=== PATIENT | female | born 1940 | race Caucasian/White ===

== ENCOUNTER → 2016-11-17 | Outpatient (CLI) | payer MEDICARE, OTHER ==
[~2016-11-17] MED LIST: BENI40TA5 PO; FISH1200 PO; OLME1TAB13 PO; OMEG100046; OXYC-392 PO; VITA100018 PO
[2016-11-17 14:08] LABS: AUTOMATED NEUTROPHIL # 3.9 TH/MM3 (1.8-7.7); BASOPHIL # 0.1 TH/MM3 (0-0.2); BASOPHIL % 0.9 % (0.0-2.0); EOSINOPHIL # 0.2 TH/MM3 (0-0.4); EOSINOPHIL % 2.3 % (0.0-4.0); HEMATOCRIT 44.7 % (35.0-46.0); HEMO FLAGS DIFF FINAL; LYMPHOCYTE # 2.8 TH/MM3 (1.0-4.8); MEAN CELL VOLUME 91.2 FL (80.0-100.0); MEAN CORPUSCULAR HEMOGLOBIN 30.8 PG (27.0-34.0); MEAN CORPUSCULAR HGB CONC 33.8 % (32.0-36.0); MONO % 7.7 % (0.0-8.0); NEUT % 52.1 % (16.0-70.0); PLATELET COUNT 175 TH/MM3 (150-450); RED CELL DISTRIBUTION WIDTH 13.5 % (11.6-17.2); WHITE BLOOD COUNT 7.5 TH/MM3 (4.0-11.0)
[2016-11-17 14:12] LABS: BLOOD, URINE NEG (NEG); GLUCOSE,URINE NEG (NEG); KETONE, URINE NEG (NEG); NITRITE,URINE NEG (NEG); URINE COLOR COLORLESS (YELLW/STRAW)
[2016-11-17 14:13] LABS: COMMENT (UR) CULT NOT INDICATED; CULTURE IF INDICATED CULT NOT INDICATED
--- NOTE | 2016-11-19 13:05 | EKG ---
Date Performed: 11/17/2016 Time Performed: 13:23:04 PTAGE: 76 years EKG: Sinus rhythm NORMAL ECG NO PREVIOUS TRACING DOCTOR: Clint Lambert Interpretating Date/Time 11/19/2016 12:56:23
== END ==
LOC: CPRE 13:07
PROVIDERS: ATTEND Obstetrics & Gynecology
DX: Z01.810 Encounter for preprocedural cardiovascular examination (principal); Z01.812 Encounter for preprocedural laboratory examination; N95.0 Postmenopausal bleeding; N85.00 Endometrial hyperplasia, unspecified
CPT/HCPCS: 36415; 81001; 85025; 93005

== ENCOUNTER → 2016-11-19 | Day surgery (SDC) | payer MEDICARE, OTHER ==
--- NOTE | 2016-11-18 12:29 | MH ---
cc: DARRION HUITRON DATE OF ADMISSION: 11/19/2016 ADMITTING DIAGNOSIS Postmenopausal bleeding. HISTORY OF PRESENT ILLNESS The patient is a 76-year-old white female para 2-0-1-2, had developed painless bleeding per vagina on the evening of 10/20/2016 and came in for evaluation on 11/04/2016. Pelvic ultrasound showed the uterus which measured 6.2 cm. Endometrium 6 mm. She is now admitted for evaluation. PAST MEDICAL HISTORY PREVIOUS SURGERY None. MEDICATIONS She will bring in list. ALLERGIES KEFLEX which causes a rash. SERIOUS MEDICAL ILLNESSES History of hypertension. TRANSFUSIONS None. OBSTETRICAL HISTORY Two vaginal deliveries. SOCIAL HISTORY Retired, . Alcohol occasional. Tobacco none. Drugs none. FAMILY HISTORY Noncontributory. PHYSICAL EXAMINATION GENERAL: This is a well-nourished, well-developed white female. VITAL SIGNS: Stable. HEENT EXAM: Exam is normal. CHEST: Clear. HEART: Regular rate. BREASTS: Symmetrical. ABDOMEN: Benign. PELVIC EXAM: Vagina is atrophic with cystocele, rectocele. The uterus feels normal in size and shape. Adnexa non-palpable. ASSESSMENT As above. PLAN She is now admitted for a hysteroscopy and D&C. While in the office I have explained the procedures, the risks, benefits and complications and possible need for additional surgery depending on the findings. The patient would like to proceed. MD BART Morales/TALISHA /11:58 AM /12:19 PM
[~2016-11-19] VITALS: Ht 157.5 cm; Wt 76.8 kg
[~2016-11-19] MED LIST changes: +ACETAMINOPHEN 1000 MG/100 ML VIAL IV SCH; +CHLORHEXIDINE GLUCONATE 2 % 1 PACK (2 CLOTHS) TOPICAL PRN; +DO NOT ADM ANY ANTICOAGULANT DRUGS PRN; +INSULIN HUMAN REGULAR 1,000 UNITS/10 ML VIAL SQ PRN; +LACTATED RINGER'S 1000 ML IV PRN; +LIDOCAINE HCL 1% PF 5 ML AMPULE OTHER ONE; +METOPROLOL TARTRATE 25 MG TAB PO PRN; +MIDAZOLAM HCL 2 MG/2 ML VIAL IV ONE; +POVIDONE IODINE 5% (ANTISEPSIS KIT) 4 APPLICATIONS EACH NARE PRN; +PROPOFOL 200 MG/20 ML AMP IV ONE; +SODIUM CHLORID 0.9% 500 ML IV PRN
[2016-11-19 09:35] VITALS: BP 176/86; PULSE 73; RESP 16; O2SAT 96
--- NOTE | 2016-11-19 11:09 | MP ---
cc: DARRION HUITRON DATE OF SURGERY 11/19/2016 PREOPERATIVE DIAGNOSIS Postmenopausal bleeding POSTOPERATIVE DIAGNOSIS Postmenopausal bleeding, pathology pending PROCEDURE Hysteroscopy, D&C ANESTHESIA General LMA ESTIMATED BLOOD LOSS Less than 10 cc FLUIDS About 300 cc of crystalloid. OBJECTIVE FINDINGS Following induction of adequate general LMA anesthesia, the patient was prepped and draped supine on the operating table in the dorsal lithotomy position in the usual sterile fashion with the bladder being drained via catheterization. Exam under examination revealed a second-degree cystocele with uterine prolapse and rectocele. Uterus palpated normal size and shape anterior with no adnexal masses. A heavy weighted speculum was placed in posterior fornix of the vagina. The anterior lip of the cervix grasped with a single tooth tenaculum. The cervix and uterus sounded to 7 cm with a soft dilator and dilated with a #18 Hanks dilator. The scope was passed revealing a normal endocervix and largely atrophic endometrium. The scope was now withdrawn. Endocervical curettings obtained with a small serrated curet, endometrium a small sharp curette and polyp forceps passed to sweet pickled fruit maker loose tissue and debris. The cervical tenaculum sites were now sutured with 3-0 chromic for hemostasis. All instruments removed. All counts were correct. The patients legs were taken out of the stirrups and she was awakened and taken to the recovery room in good condition. MD BART Morales/JULY /7:58 AM /11:03 AM
== END | disposition home or self-care (01) ==
LOC: HSDC 05:27
PROVIDERS: ATTEND Obstetrics & Gynecology
DX: N95.0 Postmenopausal bleeding (principal); C54.1 Malignant neoplasm of endometrium
CPT/HCPCS: 00952; 58558; 88305; J0131; J2250; J7120

== ENCOUNTER → 2016-12-09 | Outpatient (CLI) | payer MEDICARE, OTHER ==
[~2016-12-09] MED LIST changes: -ACETAMINOPHEN 1000 MG/100 ML VIAL IV SCH; -CHLORHEXIDINE GLUCONATE 2 % 1 PACK (2 CLOTHS) TOPICAL PRN; -DO NOT ADM ANY ANTICOAGULANT DRUGS PRN; -INSULIN HUMAN REGULAR 1,000 UNITS/10 ML VIAL SQ PRN; -LACTATED RINGER'S 1000 ML IV PRN; -LIDOCAINE HCL 1% PF 5 ML AMPULE OTHER ONE; -METOPROLOL TARTRATE 25 MG TAB PO PRN; -MIDAZOLAM HCL 2 MG/2 ML VIAL IV ONE; -POVIDONE IODINE 5% (ANTISEPSIS KIT) 4 APPLICATIONS EACH NARE PRN; -PROPOFOL 200 MG/20 ML AMP IV ONE; -SODIUM CHLORID 0.9% 500 ML IV PRN
[2016-12-09 14:18] LABS: APTT (PATIENT) 25.6 SEC (24.3-30.1)
[2016-12-09 14:26] LABS: AUTOMATED NEUTROPHIL # 5.8 TH/MM3 (1.8-7.7); BASOPHIL # 0.1 TH/MM3 (0-0.2); BASOPHIL % 0.7 % (0.0-2.0); EOSINOPHIL # 0.2 TH/MM3 (0-0.4); EOSINOPHIL % 2.2 % (0.0-4.0); HEMATOCRIT 43.2 % (35.0-46.0); HEMO FLAGS DIFF FINAL; LYMPH % 26.5 % (9.0-44.0); LYMPHOCYTE # 2.4 TH/MM3 (1.0-4.8); MEAN CELL VOLUME 91.9 FL (80.0-100.0); MEAN CORPUSCULAR HEMOGLOBIN 31.6 PG (27.0-34.0); MEAN CORPUSCULAR HGB CONC 34.3 % (32.0-36.0); MONO % 7.6 % (0.0-8.0); PLATELET COUNT 175 TH/MM3 (150-450); RED BLOOD COUNT 4.69 MIL/MM3 (4.00-5.30); RED CELL DISTRIBUTION WIDTH 13.7 % (11.6-17.2); WHITE BLOOD COUNT 9.2 TH/MM3 (4.0-11.0)
[2016-12-09 14:39] LABS: ALT (GPT) 24 U/L (10-53); ANION GAP 6 MEQ/L (5-15); AST (GOT) 18 U/L (15-37); BICARBONATE 24.9 MEQ/L (21.0-32.0); BLOOD UREA NITROGEN 31 MG/DL (7-18); CHLORIDE 108 MEQ/L (98-107); GLOMERULAR FILTRATION RATE 39 ML/MIN (>89); GLUCOSE,FASTING 85 MG/DL (74-99); POTASSIUM 4.5 MEQ/L (3.5-5.1); SODIUM (NA) 139 MEQ/L (136-145)
[2016-12-09 14:42] LABS: ALKALINE PHOSPHATASE 64 U/L (45-117); TOTAL BILIRUBIN ADULT 0.4 MG/DL (0.2-1.0)
--- NOTE | 2016-12-09 14:54 | RADRPT ---
EXAM DATE/TIME: 12/09/2016 14:32 [facility] COMPARISON: No previous studies available for comparison. INDICATIONS : Evaluate for pneumonia, pneumothorax or communicable disease. Pre op for hysterectomy 12-17-16 MEDICAL HISTORY : None. SURGICAL HISTORY : None. ENCOUNTER: Initial ACUITY: 1 day PAIN SCORE: 0/10 LOCATION: Bilateral chest FINDINGS: PA and lateral views of the chest demonstrate the lungs to be symmetrically aerated without evidence of mass, infiltrate or effusion. The cardiomediastinal contours are unremarkable. Degenerative arellano ges in the upper thoracic spine. CONCLUSION: No acute disease. Bridger Luna MD FACR on December 09, 2016 at 14:52 Board Certified Radiologist. This report was verified electronically.
== END ==
LOC: CPRE 13:47
PROVIDERS: ATTEND Obstetrics & Gynecology Gynecologic Oncology
DX: Z01.811 Encounter for preprocedural respiratory examination (principal); Z01.812 Encounter for preprocedural laboratory examination; C54.1 Malignant neoplasm of endometrium
CPT/HCPCS: 36415; 71020; 80053; 85025; 85610; 85730

== ENCOUNTER 2016-12-17 05:16 | Observation (INO) | payer MEDICARE, OTHER ==
[~2016-12-17] VITALS: Ht 157.5 cm; Wt 75.5 kg
[~2016-12-17 05:16] MED LIST changes: -FISH1200 PO; -OLME1TAB13 PO; -OXYC-392 PO
[2016-12-17] MEDS ORDERED: POVIDONE IODINE 5% (ANTISEPSIS KIT) 4 APPLICATIONS EACH NARE PRN (05:45)
[2016-12-17] MEDS ORDERED: SODIUM CHLORIDE FLUSH PRN IV FLUSH (05:45)
[2016-12-17] MEDS ORDERED: INSULIN HUMAN REGULAR 1,000 UNITS/10 ML VIAL SQ PRN (05:45)
[2016-12-17] MEDS ORDERED: METOPROLOL TARTRATE 25 MG TAB PO PRN (05:45)
[2016-12-17] MEDS ORDERED: LACTATED RINGER'S 1000 ML IV PRN (05:45)
[2016-12-17] MEDS ORDERED: CHLORHEXIDINE GLUCONATE 2 % 1 PACK (2 CLOTHS) TOPICAL PRN (05:45)
[2016-12-17] MEDS ORDERED: SODIUM CHLORID 0.9% 500 ML IV PRN (05:45)
[2016-12-17] MEDS ORDERED: HEPARIN SODIUM - SQ 10,000 UNITS/ML VIAL SQ SCH (05:45)
[2016-12-17] MEDS ORDERED: LEVOFLOXACIN 500 MG PREMIX INJ 100 ML IV ONE (06:28)
[2016-12-17] MEDS ORDERED: metroNIDAZOLE 500 MG INJ 100 ML IV ONE (06:28)
[2016-12-17] MEDS ORDERED: LIDOCAINE 2%/EPINEPHrine PF 1:200,000 20ML SDV ONE (06:49)
[2016-12-17] MEDS ORDERED: SUGAMMADEX SODIUM 200 MG/2 ML VIAL IV PUSH ONE ×2 (06:55)
[2016-12-17] MEDS ORDERED: FAMOTIDINE 20 MG/2 ML VIAL ONE (06:55)
[2016-12-17] MEDS ORDERED: ACETAMINOPHEN 1000 MG/100 ML 100 ML IV ONE (06:56)
[2016-12-17] MEDS ORDERED: DEXAMETHASONE SOD PHOS 4 MG/ML VIAL ONE (06:56)
[2016-12-17] MEDS ORDERED: METRONIDAZOLE 500 MG/100 ML ISONTONIC SOLN IV SCH (07:00)
[2016-12-17] MEDS ORDERED: LEVOFLOXACIN 500 MG PREMIX INJ 100 ML IV SCH (07:00)
[2016-12-17] MEDS ORDERED: HYDROmorphone HCL PF 2 MG/ML VIAL ONE (07:56)
[2016-12-17] MEDS ORDERED: SODIUM CHLORIDE FLUSH BID IV FLUSH SCH (09:00)
[2016-12-17] MEDS ORDERED: HYDROmorphone HCL PF 1 MG/ML VIAL IVP PRN (11:15)
[2016-12-17] MEDS ORDERED: SODIUM CHLORIDE 0.9% FLUSH 10 ML FLUSH IV FLUSH PRN (11:15)
[2016-12-17] MEDS ORDERED: diphenhydrAMINE HCL 25 MG CAP PO PRN (11:15)
[2016-12-17] MEDS ORDERED: ONDANSETRON HCL 4 MG/2 ML VIAL IVP PRN (11:15)
[2016-12-17] MEDS ORDERED: LORazepam 0.5 MG TAB PO PRN (11:15)
[2016-12-17] MEDS ORDERED: DO NOT ADM ANY ANTICOAGULANT DRUGS PRN (11:20)
[2016-12-17] MEDS ORDERED: *ONDANSETRON 4 MG VIAL PERIprocedural Use ONLY ONE (11:53)
[2016-12-17] MEDS ORDERED: *PROMETHAZINE 25 MG/ML VIAL PERIprocedural use ONLY ONE (12:01)
[2016-12-17] MEDS: DEXT 5%-NACL 0.45% 1000 ML INJ 1,000 ML IV SCH ×2 (12:15→22:55)
[2016-12-17] MEDS ORDERED: ONDANSETRON HCL 4 MG/2 ML VIAL IV PUSH ONE (14:03)
[2016-12-17] MEDS ORDERED: PHENYLEPH/NS 1000 MCG/10 ML SYR IV ONE (14:03)
[2016-12-17] MEDS ORDERED: MIDAZOLAM HCL 2 MG/2 ML VIAL IV ONE (14:03)
[2016-12-17] MEDS ORDERED: PROPOFOL 200 MG/20 ML AMP IV ONE (14:03)
[2016-12-17] MEDS ORDERED: ePHEDrine/NS 25 MG/5 ML SYR IV ONE (14:03)
[2016-12-17] MEDS ORDERED: SODIUM CHLORID 0.9% 500 ML INJ 1,000 ML IV ONE (14:03)
[2016-12-17] MEDS ORDERED: DEXAMETHASONE SOD PHOS 4 MG/ML VIAL IV ONE (14:03)
[2016-12-17] MEDS ORDERED: ROCURONIUM INJ 50 MG/5 ML SYRINGE IV PUSH ONE (14:03)
[2016-12-17] MEDS ORDERED: LIDOCAINE HCL 1% PF 5 ML AMPULE OTHER ONE (14:03)
[2016-12-17] MEDS ORDERED: KETOROLAC TROMETHAMINE 60 MG/2 ML (IM) VIAL IM ONE (14:03)
[2016-12-17] MEDS ORDERED: LACTATED RINGER'S 1000 ML INJ 2,000 ML IV ONE (14:03)
[2016-12-17] MEDS: ACETAMINOPHEN 1000 MG/100 ML 100 ML IV SCH ×2 (14:48→18:46)
--- NOTE | 2016-12-17 15:10 | PD.ONC.PN ---
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 pain controlled no complaints Objective Data Date Time Temp Pulse Resp B/P (MAP) Pulse Ox O2 Delivery O2 Flow Rate FiO2 12/17/16 14:00 75 16 156/74 (101) 96 Nasal Cannula 2 12/17/16 12:45 97.9 75 16 146/66 (92) 97 Nasal Cannula 2 12/17/16 12:30 71 12 164/79 (107) 93 Nasal Cannula 2 12/17/16 12:15 72 10 166/79 (108) 93 Nasal Cannula 2 12/17/16 12:00 77 12 170/86 (114) 94 Nasal Cannula 2 12/17/16 11:45 85 12 176/84 (114) 92 Nasal Cannula 2 12/17/16 11:30 77 10 158/94 (115) 95 Simple Mask 6 12/17/16 11:22 97.6 80 12 149/93 (111) 96 Simple Mask 6 12/17/16 12/17/16 12/17/16 07:00 15:00 23:00 Intake Total 2300 ml Output Total 900 ml Balance 1400 ml Administered Medications Medications (Trade) Dose Ordered Sig/Yadi Route PRN Reason Start Time Stop Time Status Last Admin Dose Admin Dextrose/Sodium Chloride 1,000 ml @ 75 mls/hr [id number] IV 12/17/16 11:04 12/17/16 12:15 Acetaminophen 100 ml @ 400 mls/hr Q6H IV 12/17/16 13:00 12/18/16 12:59 12/17/16 14:48 Objective Remarks GENERAL: Well-nourished, well-developed patient. SKIN: Warm and dry. HEAD: Normocephalic. EYES: No scleral icterus. No injection or drainage. CARDIOVASCULAR: Regular rate and rhythm without murmurs. RESPIRATORY: Breath sounds equal bilaterally. No accessory muscle use. GASTROINTESTINAL: Abdomen soft, SS are C/D/I EXTREMITIES: teds and scds MUSCULOSKELETAL: Adequate muscle tone. NEUROLOGICAL: No obvious focal deficit. Awake, alert, and oriented x3. PSYCHIATRIC: Appropriate mood and affect; insight and judgment normal. Assessment/Plan Problem List: (1) Post-operative state ICD Codes: Z98.890 - Other specified postprocedural states Status: Acute Plan: s/p RA eliezer hyst with BSO for endometrial cancer post op orders in chart awaiting bed on 7[facility] ADAT d/c hugh in morning anticipate d/c in next 24 hours Attending Statement discussed with Dr. Zafar Ramsey,Teresa SUTTON Dec 17, 2016 15:10
[2016-12-17 16:30] VITALS: BP 177/82; PULSE 72; RESP 20; TEMP 96.4; O2SAT 94
[2016-12-17] MEDS: SODIUM CHLORIDE 0.9% FLUSH 10 ML FLUSH IV FLUSH SCH (19:45)
[2016-12-17 20:00] VITALS: BP 145/70; PULSE 80; RESP 17; TEMP 97.1; O2SAT 100
[2016-12-18] VITALS: BP 155/81; PULSE 71; RESP 18; TEMP 97.7; O2SAT 96
[2016-12-18] MEDS: ACETAMINOPHEN 1000 MG/100 ML 100 ML IV SCH ×2 (01:12→06:22)
[2016-12-18 05:19] VITALS: BP 150/72; PULSE 68; RESP 18; TEMP 97.6; O2SAT 96
[2016-12-18] MEDS ORDERED: OXYC-392 PO (06:32)
[2016-12-18 06:57] LABS: BASOPHIL % 0.4 % (0.0-2.0); HEMATOCRIT 42.5 % (35.0-46.0); HEMO FLAGS DIFF FINAL; LYMPH % 12.9 % (9.0-44.0); LYMPHOCYTE # 1.6 TH/MM3 (1.0-4.8); MEAN CELL VOLUME 92.2 FL (80.0-100.0); MEAN CORPUSCULAR HEMOGLOBIN 31.5 PG (27.0-34.0); MEAN CORPUSCULAR HGB CONC 34.2 % (32.0-36.0); MONO % 7.3 % (0.0-8.0); NEUT % 79.4 % (16.0-70.0); PLATELET COUNT 146 TH/MM3 (150-450); RED BLOOD COUNT 4.61 MIL/MM3 (4.00-5.30); RED CELL DISTRIBUTION WIDTH 13.3 % (11.6-17.2); WHITE BLOOD COUNT 12.5 TH/MM3 (4.0-11.0)
[2016-12-18 07:34] LABS: BICARBONATE 22.8 MEQ/L (21.0-32.0); POTASSIUM 4.5 MEQ/L (3.5-5.1)
[2016-12-18 08:00] VITALS: BP 138/71; PULSE 67; RESP 14; TEMP 97.1; O2SAT 97
--- NOTE | 2016-12-18 08:06 | MP ---
cc: DARRION HUITRON JAMES R. D.O. MOLPUS, KELLY L. MD PURANDARE, VINAYAK V. M.D. DATE OF SURGERY 12/17/2016 PREOPERATIVE DIAGNOSIS Grade 2 endometrial cancer. POSTOPERATIVE DIAGNOSIS 1. Grade 2 endometrial cancer. 2. Extensive pelvic adhesions. 3. Extensive colonic diverticulum. PROCEDURE Robotic-assisted laparoscopic hysterectomy, bilateral salpingo-oophorectomy, bilateral pelvic lymph node excisional biopsies, extensive lysis of adhesions. SURGEON Taryn Stephen MD TEAM PSYCHOLOGIST [place] registered nurse first assistant ANESTHESIA General endotracheal anesthesia ESTIMATED BLOOD LOSS 200 cc IV FLUIDS 2300 cc URINE OUTPUT 400 cc HISTORY 76-year-old female with postmenopausal bleeding. Biopsy showed a grade 2 endometrial cancer. She was counseled regarding these findings and is ready to move forward with surgical management. She is seen again in the preop holding area where findings and issues are again discussed and reviewed. She remains apprehensive about full lymphadenectomy and the possibility of lymphedema. As per our prior discussion, we will use judgment based on findings at the time of frozen section and agreed that if findings are low or at intermediate risk, we would forego a full lymphadenectomy, but if there are any findings that are suspicious or prominent lymph nodes, we would selectively removed those to help increase diagnostic accuracy, but minimize morbidity and she is in favor of that approach and agrees to move forward with surgery. FINDINGS The uterus is retroverted sounds to 6 cm and is grossly normal. The ovaries are grossly normal. The tubes are status post tubal ligation. In the peritoneal cavity, the pelvis is densely adherent to colon and is adherent over the left adnexa. The left adnexa cannot be visualized initially as they are retroperitonealize plastered against the left pelvic sidewall and in the cul-de-sac and the cul-de-sac is obliterated with extensive adhesions. There are numerous diverticulum in the colon suggesting that this process is all resulting from prior episodes of diverticulitis. The right tube and ovary have minimal adhesions. In the abdomen, the anatomy appears relatively normal. The liver diaphragm edges are smooth. Omentum grossly appears normal. Large, small bowel and adjacent mesentery are without peritoneal implants. The uterus once removed on preliminary pathology showed a plaque-like tumor on the endometrium. On gross inspection, it was not obviously invasive, but on microscopic, there was a focal area of invasion that invaded to approximately 7/15 mm myometrium. There was a prominent lymph node or group of lymph nodes in the left obturator space. There was a slightly prominent lymph node in the right external iliac area and another one in the obturator space. the remainder of the lymph nodes were undetectable and not appreciably enlarged. There were no detectable or prominent para-aortic lymph nodes. MODIFIER/STATEMENT OF COMPLEXITY The complexity of this case was increased significantly due to extensive pelvic adhesions as described and estimated additional 45 minutes were required lysing adhesions to restore normal anatomy to help accomplish surgical objectives and modifier should be applied accordingly. PROCEDURE The patient taken to the operating room, placed in the dorsal lithotomy position after general endotracheal anesthesia was administered. A time-out was undertaken. She was identified by sight recognition, hospital ID [email or web address] and the proposed procedure was reviewed and confirmed. She was carefully positioned in padded Jeffy stirrups. Her arms padded and secured to her sides. She was further secured to the operating table with egg crate padding and tape in a cross chest over the shoulder fashion. All sites noted to be properly aligned with no malalignments or pressure points. She was prepped and draped in a sterile fashion, placed in lithotomy position. The cervix was grasped, large rectocele was noted. A posterior retractor was used to help visualize the cervix. The uterine cavity sounded. The cervix was dilated and a standard V-Care manipulator was inserted and secured in the usual fashion. Vyas catheter placed in the bladder. She was returned to low lithotomy position. A change of sterile gloves was undertaken. We completed draping in anticipation of laparoscopy, confirmed that an orogastric tube was in the stomach on suction. With manual elevation of the abdominal wall and direct laparoscopic visualization, a 5 mm cannula introduced in the left upper quadrant and an atraumatic entry was confirmed. Carbon dioxide gas was insufflated. A 12 mm cannula placed in the midline above the umbilicus. 8 mm cannula was placed in the right upper quadrant, left lateral quadrant and the original 5 exchanged for a 8 mm cannula. She is placed in steep Trendelenburg position. Peritoneal washings were obtained for cytology. The anatomy was reviewed with findings as described above and in Trendelenburg position, the small bowel was folded back on its mesenteric root and three Ray-Jose Alejandro sponges were placed around the root of the small bowel mesentery. The robotic system was brought into the operative field, attached in the usual fashion. Monopolar scissors, fenestrated bipolar forceps and Prograsp manipulators were placed in arms #1, 2 and 3 respectively and I took my place at the surgeon's console. The right round ligament was isolated, cauterized and transected. The anterior and posterior leafs of the broad ligament were opened. The right ureter was identified. The right infundibulopelvic ligament was isolated. The intervening peritoneum was opened. The infundibulopelvic ligament was isolated to the level of the pelvic brim where it was cauterized and transected. Posterior peritoneum opened along the right side of the uterus and cervix and the right vesicouterine peritoneum was dissected off the lower uterine segment and cervix and the right uterine vessels were skeletonized. They were isolated, cauterized and transected as were the cardinal, paracervical, and uterosacral ligaments. Attention was directed to the left side where extensive adhesions were noted as described above. Sharp dissection was used to mobilize the colon from its dense attachments overlying the adnexa and to free the colon and colonic mesentery from obliteration of the posterior cul-de-sac and to dissect the colon off the left posterior wall of the uterus and cervix. Further sharp dissection was used to free the adhesions from the tube and ovary and remove them from the retroperitonealized position to allow them to be mobilized away from the colon. Retroperitoneal dissection was carried out further now lateral to the gonadal vessels as the left round ligament was isolated, cauterized and transected. Dissection allowed further mobilization of the colon medially and allowed identification of the left ureter such that the infundibulopelvic ligament could be isolated and the intervening peritoneum was opened. The infundibulopelvic ligament was isolated to the level of the pelvic brim where it was isolated and cauterized and transected. Now moving proximally toward the uterus, additional sharp dissection was used to help further mobilize the tube and ovary, isolate them as the colon was further mobilized and dropped posteriorly to help isolate the left tube and ovary. The canal elevated attached now only by the utero-ovarian ligament. The remainder of the posterior peritoneum was opened and the left vesicouterine peritoneum was dissected off the lower uterine segment. The left uterine vessels were isolated, skeletonized, cauterized and transected as were the cardinal, paracervical and uterosacral ligaments. Colpotomy was performed and the specimen was withdrawn transvaginally which included uterus, cervix, tubes and ovaries and a Pneumooccluder balloon was placed in the vagina to maintain pneumoperitoneum. Instruments one and three were exchanged for needle drivers as 0 a Vicryl suture was introduced. The vaginal cuff was closed starting at the left corner full-thickness closure including the posterior peritoneum, edge of the uterosacral ligament, tied via instrument tie. The running continuous closure was held on countertraction as full-thickness closure was carried across the vaginal apex and contralateral corner where it was tied via instrument tie and the needle was cut and removed. The integrity of the bladder was checked with visual inspection. There was a good margin between the vaginal cuff suture line and the edge of the bladder. Good peristalsis of ureters bilaterally. Frozen section came back with intermediate risk factors including moderate grade tumor with depth of invasion approximately 50%. As per our preoperative discussion, the pelvic lymph node basins were opened as the paravesical obturator spaces and pararectal spaces were developed and inspection was carried out along the common iliac artery, aorta, and vena cava. The findings were as described above with a single prominent lymph node or group of lymph nodes in the left the obturator space perhaps just over 1-cm and similarly on the right side along the external iliac and in the obturator space slightly prominent lymph nodes were detected. The remainder of the nodes were undetectable, not appreciably enlarged and as per our discussion and agreement, these lymph nodes were removed. Dissection was initiated on the right side where the first the right external iliac lymph node was removed with Bipolar cautery and sharp dissection. It was placed on a Ray-Jose Alejandro sponge in the right pericolic gutter for later retrieval. The obturator space was further developed an the prominent lymph node in the obturator space was isolated and removed with bipolar cautery and sharp dissection and similarly placed in the right pelvis for later retrieval. Bleeders rendered hemostatic with bipolar cautery. Attention was directed toward the left side, left obturator space was developed and the lymph node in this area that was prominent was removed with bipolar cautery and sharp dissection. Small bleeders rendered hemostatic with bipolar cautery and this lymph node was placed in the right pelvis for later retrieval. Visual and palpable inspection of the lymph node basins revealed no other abnormality. It was felt that all reasonable surgical objectives in this patient had been completed. The pelvis was thoroughly irrigated. Small bleeders rendered hemostatic with bipolar cautery. Surgicel was placed overlying the colon and mesentery were the extensive lysis of adhesions had taken place as there was some generalized adhesive surfaces oozing minimally and then a small piece of Surgicel was placed on each of the pelvic lymph node basins. The robotic instruments were removed. The robotic system was disengaged from the operative field. I reentered the bedside under sterile condition. Using a 12-cm EndoCatch bag, the single Ray-Jose Alejandro sponge containing lymph nodes was placed in the bag and withdrawn through the 12-mm cannula and after removal, the lymph node tissue was removed from the Ray-Jose Alejandro sponge, isolated and sent for permanent histopathologic analysis. The remaining two Ray-Jose Alejandro sponges were each grasped and removed, inspected and noted to be removed in their entirety. There were no remaining foreign objects in the peritoneal cavity. Preliminary counts were correct. The 12-mm fascial defect was closed with interrupted 0-Vicryl sutures using a needle pass apparatus. The sutures were tied securely rendered the fascia completely airtight and hemostatic. The remaining cannulas were withdrawn. Carbon dioxide gas was removed from the peritoneal cavity. 3-0 Vicryl subcutaneous, 3-0 Vicryl subcuticular and Steri-Strips were used to close these incisions. She was placed in lithotomy position. Exam confirmed that the vaginal cuff was well supported and hemostatic. There were no remaining foreign objects in the vagina. No lacerations. There was some superficial irritation around the introitus rendered hemostatic with silver nitrate. Final counts were correct. She was returned to dorsal supine position and was pending reversal of anesthesia when I left the operating room to precede her to the Post Anesthesia Care Unit. MD MARIAM Roger/JULY /6:37 AM /7:26 AM
[2016-12-18] MEDS: SODIUM CHLORIDE 0.9% FLUSH 10 ML FLUSH IV FLUSH SCH (08:34)
[2016-12-18] MEDS ORDERED: NON-FORMULARY DRUG (Olmesartan-Hydrochlorothiazide (Benicar Hct) 1 TAB) PO SCH (09:00)
[2016-12-18] MEDS ORDERED: LOSARTAN 50 MG TAB PO SCH (09:00)
[2016-12-18] MEDS ORDERED: HYDROCHLOROTHIAZIDE 12.5 MG CAP PO SCH (09:00)
[2016-12-18 12:00] VITALS: BP 135/73; PULSE 88; RESP 14; TEMP 96.2; O2SAT 97
--- NOTE | 2016-12-18 15:26 | MD ---
cc: DARRION HUITRON JAMES R. D.O. MOLPUS,JOAN CALDERA MD, M.D. ADMISSION DATE: 12/17/2016 DISCHARGE DATE: 12/18/2016 PROCEDURE 12/17/2016, robotic-assisted laparoscopic hysterectomy, bilateral salpingo-oophorectomy, bilateral pelvic lymph node biopsies, extensive lysis of adhesions. DIAGNOSIS Endometrial cancer. HOSPITAL COURSE She did well in the early postoperative period. Hemodynamically stable, adequate pain control, tolerating oral intake, pending voiding. In's and out's [id number]. Labs pending at the time of this dictation. PHYSICAL EXAMINATION VITAL SIGNS: Afebrile, pulse 68-80, respirations 16-20, blood pressure 145-177/70-82. O2 saturations greater than or equal to 96%. GENERAL: Somnolent but oriented x3, in no acute distress. LUNGS: Clear. Mild basilar rales. CARDIOVASCULAR: Regular rate rhythm. ABDOMEN: Incisions clean and dry. ADMIN SECRETARY: No bleeding. EXTREMITIES: Nontender. ASSESSMENT Post-op day #1, doing well in the early postoperative period. The steps taken at surgery, the findings, preliminary pathology reviewed. Activities and restrictions discussed. Questions were answered. She expressed good understanding. PLAN I anticipate she will be discharged to home. She is to contact our office to schedule follow-up in 2 weeks. She can resume her prior medications and she will have a prescription for oxycodone for pain. Will discuss her final pathology when she returns for a post-op visit and she is to call our office should there be any questions or problems between now and the time of scheduled follow-up. MD MARIAM Roger/MICHOACANO /6:34 AM /3:18 PM
== END 2016-12-18 13:28 | disposition home or self-care (01) ==
LOC: HSDC 05:16 → HSDI 11:07 → HOCA 16:35
PROVIDERS: ADMIT Obstetrics & Gynecology Gynecologic Oncology; ATTEND Obstetrics & Gynecology Gynecologic Oncology
DX: C54.1 Malignant neoplasm of endometrium (principal); N73.6 Female pelvic peritoneal adhesions (postinfective); N95.0 Postmenopausal bleeding; N80.0 Endometriosis of uterus; N81.6 Rectocele; K57.30 Diverticulosis of large intestine without perforation or abscess without bleeding; Z98.51 Tubal ligation status
CPT/HCPCS: 00840; 38570; 58552; 80048; 85025; 86850; 86900; 86901; 88112; 88307; 88309; 88329; 94150; 96361; 96365; 96376; G0378; J0131; J1100; J1170; J1644; J1885; J1956; J2250; J2370; J2405; J2550; J3010; J7040; J7120; 88331